=== PATIENT | female | born 1960 | race Caucasian/White ===

== ENCOUNTER 2022-12-01 02:59 | Emergency (ER) | payer MEDICARE, SELFPAY ==
[2022-12-01 03:00] VITALS: BP 153/111; PULSE 70; RESP 18; TEMP 36.6; O2SAT 93; BMI 19.6
--- NOTE | 2022-12-01 03:08 | EKG12_ITS ---
Test Reason : SOB Blood Pressure : / mmHG Vent. Rate : 092 BPM Atrial Rate : 092 BPM P-R Int : 244 ms QRS Dur : 094 ms QT Int : 356 ms P-R-T Axes : 000 074 102 degrees QTc Int : 440 ms Sinus rhythm with 1st degree A-V block Nonspecific ST and T wave abnormality Abnormal ECG Confirmed by TABBY DE LA TORRE, RON ([id number]), editor school photograph JARRETT DOZIER ([id number]) on 12/04/2022 12:37:25 PM Referred By: EDUARDO Confirmed By:RON MCNAIR MD
--- NOTE | 2022-12-01 03:09 | ED.VIS.CHEST ---
HPI History of Present Illness Chief Complaint: Chest Pain Narrative Narrative: Patient is presenting with chest pain and difficulty breathing for a few hours. Pain is sharp and stabbing. No fever or chills. The pain does not radiate to her back. She has no abdominal pain. There is no other radiation of the pain. No pleuritic component. No lower extremity edema or calf pain. PFSH PFSH Medical History A-fib COPD (chronic obstructive pulmonary disease) Coronary artery disease Pacemaker Home Medications hydrocodone-acetaminophen 5-325mg 5mg-325mg 1 tab PO Q4H PRN PRN Pain 3 days #10 TABLETS 12/01/22 [Rx Last Taken Unknown] Allergy/AdvReac Type Severity Reaction Status Date / Time codeine Allergy Itching Verified 12/01/22 03:09 ketorolac [From Toradol] Allergy Itching Verified 12/01/22 03:09 sumatriptan [From Imitrex] Allergy Hives Verified 12/01/22 03:09 tramadol Allergy Itching Verified 12/01/22 03:09 Surgical History Hx of CABG Social History Smoking Status: Former smoker ROS ROS ED ROS Narrative Past medical history: Reviewed Medications: Reviewed Social history: Noncontributory Review of systems: All systems negative except as indicated General: No fever Eyes: No visual changes ENT: No upper airway congestion, normal voice Neck: No neck pain Cardiovascular: Chest pain as in HPI Respiratory: Shortness of breath. No cough Gastrointestinal: No abdominal pain, nausea vomiting or diarrhea Genitourinary: No dysuria Musculoskeletal: Denies myalgias no difficulty with ambulation Skin: No rash Neurological: No memory loss, confusion or any focal weakness EXAM Physical Exam Narrative Exam Narrative: Physical exam General: She appears somewhat uncomfortable Head: Normocephalic, Atraumatic Eyes: Conjunctiva not pale ENT: Moist mucous membranes Neck: Supple, Nontender, No lymphadenopathy Cardiovascular: Regular rate, Regular rhythm. No murmur Respiratory: Decreased breath sounds bilaterally and some wheezing. Abdomen: Soft, Nontender, Nondistended Back: Nontender, Normal Inspection. Negative for: CVA tenderness Extremities: Nontender, No edema Skin: Normal color, No rash Neurological: Alert, Normal Strength, Normal Sensation Const Vital Signs: 12/01/22 03:00 12/01/22 03:21 12/01/22 04:35 Temperature 97.9 F Temperature Source Temporal Pulse Rate 70 97 77 Respiratory Rate 18 24 H 22 H Respiratory Pattern Normal Blood Pressure 153/111 H 119/88 H Blood Pressure Mean 125 98 Pulse Ox 93 90 Oxygen Delivery Method Room Air Room Air 12/01/22 05:00 Temperature Temperature Source Pulse Rate 84 Respiratory Rate 24 H Respiratory Pattern Blood Pressure 100/81 H Blood Pressure Mean 87 Pulse Ox 91 Oxygen Delivery Method Room Air MDM MDM MDM Narrative Medical decision making narrative: A. Problems addressed Patient has chest pain that is sharp and stabbing. I am not worried about a pulmonary embolism since she is anticoagulated and she is compliant with her medications. She did have some wheezing which improved with DuoNeb. Enzymes and EKG rule out ACS. She appears like she can be safely discharged home. B. Amount and/or complexity of the data 1. CBC CMP and troponins were ordered and interpreted by me 2. Independent interpretation of test Telemetry: Sinus rhythm with a rate in the 70s and 80s without ectopy C. Patient was seen by me in the emergency department. I have considered the following differential diagnoses however I was able to exclude all of these through a thorough history and physical exam as well as laboratory testing: PE or any thromboembolic etiologies, myocardial infarction, aortic dissection, esophageal rupture, pneumothorax, musculoskeletal emergencies, upper abdominal pathologies such as pancreatitis, cholecystitis or choledocholithiasis, as well as ruptured bowel. I considered admission but after discussion with the patient we came to a mutual agreement that the patient is stable for discharge. Patient's exam is normal. History and physical point towards noncardiac, none thromboembolic and nonemergent etiologies. Lab Data Labs: Laboratory Results - last 24 hr 12/01/22 12/01/22 12/01/22 03:15 03:15 05:27 WBC 8.8 RBC 4.38 Hgb 14.1 Hct 42.5 MCV 97.0 MCH 32.2 H MCHC 33.2 RDW Std Deviation 48.4 H RDW Coeff of Papa 13.4 Plt Count 323 MPV 8.2 Immature Gran % (Auto) 0.500 Neut % (Auto) 55.5 Lymph % (Auto) 31.4 [place] % (Auto) 9.5 Eos % (Auto) 2.1 Baso % (Auto) 1.0 Absolute Neuts (auto) 4.9 Absolute Lymphs (auto) 2.75 Nucleated RBC % 0 Sodium 132 L Potassium 3.9 Chloride 100 Carbon Dioxide 29.0 Anion Gap 3 L BUN 11 Creatinine 0.84 Estim Creat Clear Calc 56.89 Est GFR (MDRD) Af Amer 88 Est GFR (MDRD) Non-Af 73 BUN/Creatinine Ratio 13.1 Glucose 128 H Calcium 9.1 Total Bilirubin 0.50 AST 29 ALT 39 Alkaline Phosphatase 109 Troponin I High Sens 5 5 Total Protein 7.5 Albumin 4.1 Globulin 3.4 Albumin/Globulin Ratio 1.2 Radiography Diagnostic Testing: Clinical Impression(s) from Imaging Studies Chest X-Ray 12/01/22 03:30 IMPRESSION: Chest with no acute disease. Electronically Signed: Bo Rosa MD at 4:02 EDT , EKG Initial EKG: Comments: Sinus rhythm with a rate of 92. Normal IA and QTc intervals. Nonspecific ST abnormalities no acute STEMI. Interpreted by emergency doctor Discharge Plan Triage Chief Complaint: Chest Pain ED Provider: Tej Charles Dx/Rx/DC Orders Clinical Impression: Chest pain, History of atrial fibrillation Instructions: ED Chest Pain, Uncertain Cause Prescriptions: New hydrocodone-acetaminophen 5-325 mg tablet 1 tab PO Q4H PRN PRN (Reason: Pain) 3 Days Qty: 10 0RF Primary Care Provider: SAMARA HANNON Referrals: SAMARA HANNON [Other] NOT,DEFINED [Non-Staff] - Disposition Disposition: Home, Self Care
[2022-12-01] MEDS: Ipratropium/Albuterol Sulfate 3 ML AMPUL.NEB INHALATION (03:20)
[2022-12-01 03:21] VITALS: PULSE 97; RESP 24
[2022-12-01 03:21] LABS: Absolute Lymphocyte Count 2.75 X10^3/uL (0.83-4.51); Absolute Neutrophil Count 4.9 X10^3/uL (2.0-7.7); Basophil# 0.09 X10^3/uL; Eosinophil# 0.18 X10^3/uL; Eosinophils% 2.1 % (0-5); Hematocrit 42.5 % (37-47); Hemoglobin 14.1 g/dL (12.0-15.0); Lymphocyte # 2.75 X10^3/ul (0.83-4.51); Lymphocyte % 31.4 % (19-41); Mean Corp Hgb Conc 33.2 g/dL (32-36); Mean Corpuscular Hgb 32.2 pg (27.0-32.0); Mean Platelet Vol. 8.2 fl (6.2-12.0); Monocyte# 0.83 X10^3/uL; Monocyte% 9.5 % (0-10); NRBC Flagged by Analyzer 0 % (0-5); Neutrophil # 4.87 X10^3/uL (2.7-7.7); Neutrophil % 55.5 % (47-70); Platelet Count 323 K/mm3 (150-450); RBC Distribution Width CV 13.4 % (11.6-14.6); RBC Distribution Width SD 48.4 fl (35.1-43.9); Red Blood Count 4.38 M/mm3 (4.2-5.4); White Blood Count 8.8 K/mm3 (4.4-11.0)
--- NOTE | 2022-12-01 03:30 | RAD_ITS ---
INDICATION: sob EXAMINATION/TECHNIQUE: X-RAY - XR Chest 1 View COMPARISON: None. Findings: Single frontal view of the chest. LUNG PARENCHYMA: No acute focal airspace disease or mass lesion. Bilateral nipple shadows. PLEURA: No pleural effusion. No pneumothorax. HEART/GREAT VESSELS: Cardiomediastinal silhouette is nonenlarged. Left chest multilead pacemaker device in place. Atrial appendage clip. BONES: Median sternotomy wires. RAD/Chest 1 View (Portable) IMPRESSION: Chest with no acute disease. Electronically Signed: Bo Rosa MD at 4:02 EDT ,
[2022-12-01 03:38] LABS: ALB/GLOB Ratio 1.2 RATIO (0.9-2.4); AST(SGOT) 29 U/L (15-37); Alanine Aminotransfer ALT/SGPT 39 U/L (13-56); Albumin, Serum 4.1 g/dL (3.2-5.0); Alkaline Phosphatase 109 U/L (45-117); Anion Gap 3 (5-15); BUN 11 mg/dL (7-18); BUN/Creat Ratio 13.1 RATIO (10-20); Calcium,Total 9.1 mg/dL (8.5-10.1); Chloride 100 mmol/L (98-107); Creatinine, Serum 0.84 mg/dL (0.55-1.02); EST Glomerular Filtration Rate 73 mL/min (>60); Est Glom Filt Rate - Afr Amer 88 mL/min (>60); Estimated Creatinine Clearance 56.89 ml/min; Globulin 3.4 g/dL (2.2-4.2); Glucose 128 mg/dL (74-106); Potassium 3.9 mmol/L (3.5-5.1); Protein, Total 7.5 g/dL (6.4-8.2); Sodium Level 132 mmol/L (136-145); Troponin-I HS (w/2H Reflex) 5 pg/mL (3.0-54.0)
[2022-12-01] MEDS: Morphine 4 MG/ML Syringe IV (04:26)
[2022-12-01] MEDS: Ondansetron 4 MG/2 ML Vial IV (04:26)
[2022-12-01 04:35] VITALS: BP 119/88; PULSE 77; RESP 22; O2SAT 90
[2022-12-01 05:00] VITALS: BP 100/81; PULSE 84; RESP 24; O2SAT 91
[2022-12-01 05:18] LABS: Reflex Troponin-HS? (from REC) Y
[2022-12-01 05:51] LABS: Troponin-I HS 5 pg/mL (3.0-54.0)
[2022-12-01 06:00] VITALS: BP 107/73; PULSE 60; RESP 19; O2SAT 93
== END 2022-12-01 06:28 | disposition home or self-care (01) ==
PROVIDERS: Emergency Provider Emergency Medicine; Visit Provider Emergency Medicine
DX: R07.9 Chest pain, unspecified (principal); J44.9 Chronic obstructive pulmonary disease, unspecified; I48.91 Unspecified atrial fibrillation; Z87.891 Personal history of nicotine dependence; I25.10 Atherosclerotic heart disease of native coronary artery without angina pectoris; Z95.0 Presence of cardiac pacemaker; R06.02 Shortness of breath
CPT/HCPCS: 71045; 80053; 84484; 85025; 93005; 94640; 99285; A4216; J2405